=== PATIENT | male | born 1960 | race Caucasian/White ===

== ENCOUNTER 2019-01-20 10:37 | Observation (INO) | payer BC ==
[2019-01-20 11:15] LABS: #Eosinphils 0.4 thou/uL (0.0-0.7); #Lymphocytes 2.3 thou/uL (1.20-3.40); #Monocytes 0.6 thou/uL (0.11-0.59); #Neutrophils 3.3 thou/uL (1.40-6.50); %Basophils 0.6 % (0.0-1.0); %Eosinophils 6.4 % (0.0-10.0); %Lymphocytes 34.5 % (21.0-51.0); %Monocytes 8.7 % (0.0-10.0); %Neutrophils 49.8 % (42.0-75.0); Hemoglobin 16.3 g/dL (14.0-18.0); Mean Corpuscular HGB CONC 32.9 g/dL (32.0-36.0); Mean Corpuscular Hemoglobin 30.5 pg (27.0-31.0); Mean Corpuscular Volume 92.7 fL (78.0-98.0); Platelet Count 279 thou/uL (130-400); RBC Distribution Width 12.5 % (11.5-14.5); Red Blood Cell (RBC) Count 5.36 mill/uL (4.70-6.10); White Blood Cell (WBC) Count 6.7 thou/uL (4.8-10.8)
[2019-01-20 11:24] LABS: ALT (SGPT) 20 U/L (8-55); AST (SGOT) 18 U/L (5-34); Albumin 4.3 g/dL (3.5-5.0); Alkaline Phosphatase 83 U/L (40-150); Anion Gap 13 mmol/L (10-20); BUN (Urea Nitrogen) 13 mg/dL (8.4-25.7); Bilirubin, Total 0.5 mg/dL (0.2-1.2); Calc. Creatinine Clearance 0 mL/min (70-130); Calcium 9.8 mg/dL (7.8-10.44); Carbon Dioxide 26 mmol/L (22-29); Chloride 102 mmol/L (98-107); Estimated GFR-MDRD 65; Globulin 2.9 g/dL (2.4-3.5); Glucose 141 mg/dL (70-105); Potassium 3.8 mmol/L (3.5-5.1); Protein, Total 7.2 g/dL (6.0-8.3); Sodium 137 mmol/L (136-145)
[2019-01-20] MEDS ORDERED: Nitroglycerin 2% Ointment 1 INCH/1 GM Packet ONE (11:44)
[2019-01-20] MEDS ORDERED: Aspirin Chewable 81 MG TAB ONE (11:44)
[2019-01-20] MEDS ORDERED: Acetaminophen 500 MG TAB ONE (13:02)
[2019-01-20] MEDS ORDERED: Senokot S 8.6-50 MG TAB PO PRN (14:03)
[2019-01-20] MEDS ORDERED: Acetaminophen 325 MG TAB PO PRN (14:03)
[2019-01-20] MEDS ORDERED: Nitroglycerin 0.4 MG TAB (25 Tab Bottle) PO PRN (14:03)
[2019-01-20] MEDS ORDERED: Bisacodyl 10 MG SUPP PR PRN (14:03)
[2019-01-20] MEDS ORDERED: Guaifenesin DM 100-10/5 ML UDCUP PO PRN (14:03)
[2019-01-20 14:17] LABS: Troponin I Less than 0.010 ng/mL (< 0.028)
--- NOTE | 2019-01-20 14:37 | HP ---
REASON FOR ADMISSION: Chest pain. HISTORY OF PRESENTING ILLNESS: The patient gives history of feeling bad for almost a week now. He has had left chest soreness with radiation to shoulder and left upper extremity tingling and numbness. He in fact had gone to see a chiropractor, thinking its something to do with his neck. He got more concerned after he did not get well seeing a chiropractor. He went to see his primary care physician and met one of his PAs. She asked him to go to the emergency room. He has no complaints of palpitations, PND, or orthopnea. In the last few days, he has been waking up with above complaints. The patient has had prior cardiac catheterization done more than 10 years back, which was normal as far as he knows, but had some mild coronary artery disease. No intervention was done. PAST MEDICAL AND SURGICAL HISTORY: Prior history of cardiac cath more than 10 years back, likely mild CAD with no intervention; history of hemorrhoids; prior colonoscopy; right third digit surgery. CURRENT MEDICATIONS: None. ALLERGIES: NO KNOWN DRUG ALLERGIES. PERSONAL HISTORY: Drinks 2 to 3 beers daily. Does not abuse drugs or smoke. 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 FAMILY HISTORY: Both parents are living, they both have had history of colon cancer. The patient lives with his . CODE STATUS: Full. Power of commercial attorney is his . REVIEW OF SYSTEMS: CONSTITUTIONAL: Negative for weight loss or gain, ability to conduct usual activities. SKIN: Negative for rash, itching. EYES: Negative for double vision, pain. ENT/MOUTH: Negative for nose bleeding, neck stiffness, pain, tenderness. CARDIOVASCULAR: Negative for palpitations, dyspnea on exertion, orthopnea. RESPIRATORY: Negative for shortness of breath, wheezing, cough, hemoptysis, fever or night sweats. GASTROINTESTINAL: Negative for poor appetite, abdominal pain, heartburn, nausea , vomiting, constipation, or diarrhea. GENITOURINARY: Negative for urgency, frequency, dysuria, nocturia. MUSCULOSKELETAL: Negative for pain, swelling. NEUROLOGIC/PSYCHIATRIC: Negative for anxiety, depression. ALLERGY/IMMUNOLOGIC: Negative for skin rash, bleeding tendency. PHYSICAL EXAMINATION: GENERAL: The patient is a 58-year-old male, who is currently not in any acute distress. VITAL SIGNS: Blood pressure 168/86, pulse 84 per minute, respiratory rate 18 per minute, temperature 98.1 degrees Fahrenheit, saturating 99% on room air. NECK: Supple. No elevated JVD. HEENT: Eyes; extraocular muscles are intact. Pupils are reacting to light. Oral cavity, mucous membranes are moist. No exudates or congestion. CARDIOVASCULAR: S1 and S2 heard, regular rhythm. RESPIRATORY: Air entry 1+ bilateral. No rales or rhonchi. ABDOMEN: Soft. Bowel sounds heard. No tenderness, rigidity, or guarding. EXTREMITIES: No peripheral edema or calf tenderness. VASCULAR: Peripheral pulses 2+ bilateral. No ischemic ulcers or gangrene. CENTRAL NERVOUS SYSTEM: No gross focal deficits noted. The patient is alert, awake, and oriented well. PSYCHIATRIC: The patient's mood is euthymic. No hallucinations or delusions. LABORATORY DATA: EKG done shows normal sinus rhythm at 84 beats per minute. There is Q-waves seen in V1, V2, with poor R-wave progression, questionable Q-waves in III and aVF as well. White count of 6.7, hemoglobin and hematocrit are 16 and 49, platelet count 279, MCV is 92 with 49% neutrophils. Electrolytes are stable. BUN 13, creatinine 1.1, serum glucose 141. First set of troponin is negative. Albumin is 4.3. Lipase is 13. CLINICAL IMPRESSION AND PLAN: The patient will be under observation on telemetry for chest pain, rule out acute coronary syndrome. He also has findings suggestive of possible cervical radiculopathy. These have been bothering him and in fact he had seen a chiropractor with no relief and is waking him up from last 3 days with above-mentioned complaints. He has had mild CAD per prior cardiac cath per the patient. In view of this, we will obtain a Cardiolite stress test and also MRI of the cervical spine to rule out disk disease/radiculopathy. He will be on aspirin, low-dose Lopressor. One more set of troponin. Lipid profile in the morning. We will continue to closely monitor him on telemetry. Job ID: [id number] [facility]
--- NOTE | 2019-01-20 16:31 | MRI ---
MRI CERVICAL SPINE WITHOUT CONTRAST: 01/20/19 INDICATIONS: Neck pain, radiculopathy. The exam is severely degraded due to motion artifact on all sequences. Technologist states patient i s claustrophobic and could not lay still. Cervical vertebrae maintain height and alignment. Disc spaces are preserved. Posterior disc bulge and spondylosis seen at C3-4 effacing the anterior subarachnoid space. At C4-5, posterior disc bulge and spondylosis abuts the anterior cord. Foraminal encroachment bilater ally due to facet and uncinate hypertrophy. At C5-6, disc bulge and spondylitic change abut the anterior cord. Evidence of foraminal encroachment due to hypertrophic change. At C6-7, disc bulge and spondylosis efface the anterior subarachnoid space. Cord signal cannot be adequately evaluated. Artifact on T2 images produce diffuse signal throughout t he cord. IMPRESSION: Severely degraded study due to motion artifact. Disc bulge and spondylitic changes are prominent at C 3-4, C4-5, C5-6, levels. Cord impingement at C4-5 and possibly C5-6. Consider CT cervical spine whic h should lesser motion artifact and could better delineate bony spondylitic change. POS: ADY
[2019-01-20 17:15] LABS: Troponin I Less than 0.010 ng/mL (< 0.028)
[2019-01-20 18:11] VITALS: BMI 25.2
[2019-01-20] MEDS: Famotidine 20 MG TAB PO SCH (19:56)
[2019-01-20] MEDS: Metoprolol Tartrate 25 MG TAB PO SCH (22:26)
[2019-01-21 05:30] LABS: Anion Gap 10 mmol/L (10-20); BUN (Urea Nitrogen) 15 mg/dL (8.4-25.7); Calc. Creatinine Clearance 86 mL/min (70-130); Calcium 8.7 mg/dL (7.8-10.44); Carbon Dioxide 26 mmol/L (22-29); Chloride 104 mmol/L (98-107); Cholesterol 215 mg/dl (< 200 Desired); Estimated GFR-MDRD 74; Glucose 87 mg/dL (70-105); HDL Cholesterol 43 mg/dL (>60 Neg Risk); LDL Cholesterol, Calculated 151 mg/dL; Potassium 3.7 mmol/L (3.5-5.1); Sodium 136 mmol/L (136-145); Triglycerides 103 mg/dL (Less than 150)
[2019-01-21] MEDS ORDERED: Aspirin Chewable 81 MG TAB PO SCH (09:00)
[2019-01-21] MEDS ORDERED: Enoxaparin Sodium 40 MG/0.4 ML SYRINGE SC SCH (09:00)
--- NOTE | 2019-01-21 11:50 | NM ---
EXAM: CARDIAC SPECT HISTORY: Chest pain TECHNIQUE: A myocardial perfusion scan was performed using the single isotope 1 day protocol with torito hnetium 99m sestamibi. [10 mCi] was injected intravenously for the rest exam followed by 30 mCi for the stress study. Exercise stress was monitored and interpreted by FRANK Hawkins FINDINGS: Homogeneous tracer distribution is seen in the myocardial segments on stress and rest image s without fixed or reversible defects. Gated SPECT LVEF: 66% Wall motion exam: Normal IMPRESSION: Normal myocardial perfusion scan
[2019-01-21 12:05] VITALS: BP 112/86; TEMP 98.2
[2019-01-21] MEDS: Famotidine 20 MG TAB PO SCH (12:10)
[2019-01-21] MEDS: Metoprolol Tartrate 25 MG TAB PO SCH (12:10)
[2019-01-21] MEDS ORDERED: Atorvastatin Calcium 40 MG TAB PO SCH (21:00)
--- NOTE | 2019-01-22 16:26 | DIS ---
DATE OF ADMISSION: 01/20/2019 DATE OF DISCHARGE: 01/21/2019 DISCHARGE DISPOSITION: Home. PRIMARY DISCHARGE DIAGNOSES: Chest pain, which is noncardiac, likely cervical radiculopathy, dyslipidemia. PROCEDURES DONE DURING HOSPITALIZATION: C-spine MRI had motion artifact due to patient moving during the procedure. There is disk bulges and spondylitic changes more prominent at C3-4, C4-5, C5-6 levels. There is cord impingement at C4-5 and possibly C5-C6. Nuclear stress test done showed ejection fraction of 66% with normal wall motion and normal myocardial perfusion scan. H and H 16 and 49, platelet count 279, MCV was 92. Total cholesterol 215, triglycerides 103, LDL 151, HDL 43. Troponin x3 negative. DISCHARGE MEDICATION: Atorvastatin 40 mg p.o. at bedtime. ALLERGIES: NO KNOWN DRUG ALLERGIES. BRIEF COURSE DURING HOSPITALIZATION: The patient initially came in with complaints of chest pain, left shoulder pain and left upper extremity paresthesias, especially tingling and numbness. He in fact gone to a chiropractor prior to arrival here, which did not give him any relief. He has had a prior cardiac catheterization done more than 10 years ago, which showed mild CAD. In view of above-mentioned issues, the patient was placed under observation on telemetry. He has had 3 sets of troponin which were negative. Nuclear stress test done showed no reversible ischemia or perfusion defects. The patient had an MRI done, but it was degraded due to motion artifact. He will be following up with Dr. Koch as an outpatient. Their office will call him. He will likely have a repeat MRI in the outpatient setting. He is otherwise hemodynamically stable with complete relief of chest pain as such, but still has some paresthesias in the upper extremity. 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 He is hemodynamically stable ambulating and eating well prior to discharge. Please note I have seen and examined the patient on the day of discharge. He is also advised to follow up with his primary care physician in 1 week. Job ID: [id number]
== END 2019-01-21 14:34 | disposition home or self-care (01) ==
LOC: ERS 10:37 → ERHOLD 12:56 → 2NO 17:32
PROVIDERS: ADMIT Internal Medicine; ATTEND Internal Medicine
DX: R07.89 Other chest pain (principal); E78.5 Hyperlipidemia, unspecified; M47.812 Spondylosis without myelopathy or radiculopathy, cervical region; I25.10 Atherosclerotic heart disease of native coronary artery without angina pectoris
CPT/HCPCS: 36415; 71046; 72141; 78452; 80048; 80053; 80061; 83690; 84484; 85025; 93005; 93017; A9500; G0378; J1650